=== PATIENT | female | born 1955 | race Caucasian/White ===

== ENCOUNTER 2017-06-01 19:32 | Emergency (ER) | payer MEDICARE, OTHER ==
[2016-07-17 05:48] VITALS: BMI 22.3
[~2017-06-01 19:32] MED LIST: ACETAMINOPHEN500 M1 PO; AMITIZA24 MCG PO; ATARAX 25 MG TA25 MG PO; ATIVAN1 MG PO; ATROVENT 0.02%2.5 ML UPD; BACLOFEN20 M1 PO; BENADRYL25 MG PO; CATAPRES TTS-20.2 MG TD; CELEBREX200 MG PO; CORDARONE200 MG PO; CYCLOBENZAPRINE10 MG PO; CYPROHEPTADINE H4 MG PO; EMBREL IM; GEODON20 MG PO; HALOPERIDOL1 MG PO; HYDROCORTISO28.35 G1 TOPICAL; IMITREX50 MG PO; K-DUR20 MEQ PO; LASIX40 MG PO; LEVAQUIN500 MG PO; MAG-OX 400 MG400 MG PO; METOPROLOL TART50 MG PO; NEURONTIN 300300 MG PO; NEXIUM40 MG PO; NORVASC10 MG PO; NUCYNTA75 MG PO; ONDANSETRON4 MG/2 M3 IV; PERCOCET 10/3251 TA1 PO; PHENOBARBITAL97.2 MG PO; PREMARIN0.625 MG PO; PROTONIX40 MG PO; SCOT-TUSSI10 MG/5 ML PO; STERAPRED DS 1210 MG PO; TESSALON PERLE100 MG PO; VISTARIL25 MG PO; XOPENEX 0.0.63 MG/3 UPD; ZANAFLEX4 MG PO; ZOFRAN4 MG PO; ZOMIG2.5 MG PO
== END 2017-06-01 21:17 | disposition home or self-care (01) ==
LOC: D.ER 19:32
DX: M54.16 Radiculopathy, lumbar region (principal); I50.9 Heart failure, unspecified

== ENCOUNTER 2017-06-07 19:01 | Emergency (ER) | payer MEDICARE, OTHER ==
[2016-07-17 05:48] VITALS: BMI 22.3
== END 2017-06-07 21:05 | disposition home or self-care (01) ==
LOC: D.ER 19:01
DX: M54.5 Low back pain (principal); I50.9 Heart failure, unspecified

== ENCOUNTER 2017-06-18 05:17 | Emergency (ER) | payer MEDICARE, OTHER ==
[2016-07-17 05:48] VITALS: BMI 22.3
== END 2017-06-18 05:50 | disposition home or self-care (01) ==
LOC: D.ER 05:17
DX: M79.605 Pain in left leg (principal); M79.604 Pain in right leg

== ENCOUNTER 2017-06-20 23:53 | Emergency (ER) | payer MEDICARE, OTHER ==
[2016-07-17 05:48] VITALS: BMI 22.3
== END 2017-06-21 00:40 | disposition home or self-care (01) ==
LOC: D.ER 23:53
DX: M79.662 Pain in left lower leg (principal); M79.661 Pain in right lower leg; G62.9 Polyneuropathy, unspecified; M54.16 Radiculopathy, lumbar region; I50.9 Heart failure, unspecified

== ENCOUNTER 2017-06-25 05:38 | Emergency (ER) | payer MEDICARE, OTHER ==
[2016-07-17 05:48] VITALS: BMI 22.3
== END 2017-06-25 06:20 | disposition home or self-care (01) ==
LOC: D.ER 05:38
DX: M54.5 Low back pain (principal); M51.36 Other intervertebral disc degeneration, lumbar region; M54.16 Radiculopathy, lumbar region

== ENCOUNTER 2017-06-27 19:43 | Emergency (ER) | payer MEDICARE, OTHER ==
[2016-07-17 05:48] VITALS: BMI 22.3
== END 2017-06-27 22:30 | disposition home or self-care (01) ==
LOC: D.ER 19:43
DX: M54.5 Low back pain (principal); M79.605 Pain in left leg

== ENCOUNTER 2017-06-30 22:44 | Emergency (ER) | payer MEDICARE, OTHER ==
[2016-07-17 05:48] VITALS: BMI 22.3
[2017-07-01] MEDS ORDERED: LYRICA50 MG PO (20:46)
[2017-07-01] MEDS ORDERED: CELEXA10 MG PO (20:47)
[2017-07-01] MEDS ORDERED: ROBAXIN500 MG PO (20:48)
[2017-07-01] MEDS ORDERED: SINGULAIR10 MG PO (20:51)
[2017-07-01] MEDS ORDERED: BACLOFEN10 MG PO (20:52)
[2017-07-01] MEDS ORDERED: NORVASC10 MG PO (20:53)
[2017-07-01] MEDS ORDERED: METOPROLOL TAR100 M1 PO (20:54)
[2017-07-01] MEDS ORDERED: VITAMIN D31000 UNIT PO (20:54)
[2017-07-01] MEDS ORDERED: PREMARIN0.625 MG PO (20:58)
== END 2017-07-01 00:25 | disposition home or self-care (01) ==
LOC: D.ER 22:44
DX: M54.16 Radiculopathy, lumbar region (principal)

== ENCOUNTER 2017-07-01 17:37 | Inpatient (IN) | payer MEDICARE, OTHER ==
[~2017-07-01] VITALS: Ht 157.5 cm; Wt 64.1 kg
[2017-07-01 19:07] LABS: BASOPHILS 0.3 % (0-2); EOSINOPHILS 4.7 % (0-7); HEMATOCRIT 43.9 % (36.0-48.0); HEMOGLOBIN 13.3 g/dL (12-16); LYMPHOCYTES 29.6 % (15-50); MCH 29.4 pg (26.0-34.0); MCHC 30.3 g/dL (31.0-37.0); MCV 97.1 fL (80.0-100.0); MEAN PLATELET VOLUME 10.7 fL (7.4-10.4); MONOCYTES 9.9 % (2-11); NEUTROPHILS 54.5 % (40-80); PLATELET COUNT 241 10x3/uL (130-400); RBC 4.52 10x6/uL (4.00-5.40); RDW 15.4 % (11.5-14.5); WBC 5.9 10x3/uL (4.8-10.8)
[2017-07-01 19:15] LABS: ALBUMIN 3.2 g/dL (3.4-5.0); ANION GAP 17.3 mmol/L (8-16); BILIRUBIN - TOTAL 0.24 mg/dL (0.2-1.3); CARBON DIOXIDE 24.4 mmol/L (21.0-32.0); CREATININE - SERUM 1.1 mg/dL (0.6-1.3); POTASSIUM - SERUM 4.7 mmol/L (3.5-5.1); PROTEIN - SERUM 7.2 g/dL (6.4-8.2)
[2017-07-01 20:00] VITALS: BP 136/73
[2017-07-01] MEDS ORDERED: LYRICA50 MG PO (20:46)
[2017-07-01] MEDS ORDERED: CELEXA10 MG PO (20:47)
[2017-07-01] MEDS ORDERED: ROBAXIN500 MG PO (20:48)
[2017-07-01] MEDS ORDERED: SINGULAIR10 MG PO (20:51)
[2017-07-01] MEDS ORDERED: BACLOFEN10 MG PO (20:52)
[2017-07-01] MEDS ORDERED: NORVASC10 MG PO (20:53)
[2017-07-01] MEDS ORDERED: METOPROLOL TAR100 M1 PO (20:54)
[2017-07-01] MEDS ORDERED: VITAMIN D31000 UNIT PO (20:54)
[2017-07-01] MEDS ORDERED: PREMARIN0.625 MG PO (20:58)
[2017-07-01 23:26] VITALS: BP 136/73; Ht 157.5 cm; Wt 64.1 kg
[2017-07-02] VITALS: BP 127/52
[2017-07-02 02:55] LABS: APPEARANCE CLOUDY (CLEAR); BACTERIA MANY /hpf (NONE SEEN); BILIRUBIN NEGATIVE (NEGATIVE); COLOR YELLOW (YELLOW); EPITHELIAL CELLS RARE /hpf (0-5); GLUCOSE NEGATIVE (NEGATIVE); KETONE SMALL mg/dL (NEGATIVE); LEUKOCYTE ESTERASE 1+ (NEGATIVE); MUCUS >1+ /lpf (NONE SEEN); NITRITE NEGATIVE (NEGATIVE); PROTEIN TRACE mg/dL (NEGATIVE); RED CELLS - URINE 0-5 /hpf (0-5); UROBILINOGEN NORMAL (NORMAL)
[2017-07-02 04:00] VITALS: BP 120/63
--- NOTE | 2017-07-02 05:29 | NUR ---
RECEIVED PT TO FLOOR VIA STRETCHER @ 1999. REVIEWED HOME MEDS AND SENT BOTTLES BACK HOME WITH SPOUSE. PT HAS SLEPT WELL MOST OF SHIFT. HAVE GIVEN PAIN MEDICINE TWICE. ASSISTED PT UP TO BEDSIDE COMMODE ONCE AND PT GOT UP ONCE BY HERSELF. WILL CONTINUE TO MONITOR.
[2017-07-02 06:57] LABS: BASOPHILS 0.3 % (0-2); EOSINOPHILS 3.7 % (0-7); HEMATOCRIT 45.3 % (36.0-48.0); HEMOGLOBIN 13.6 g/dL (12-16); IMMATURE GRANULOCYTES 0.8 % (0-5); LYMPHOCYTES 38.5 % (15-50); MCH 29.5 pg (26.0-34.0); MCV 98.3 fL (80.0-100.0); MEAN PLATELET VOLUME 10.8 fL (7.4-10.4); MONOCYTES 12.4 % (2-11); NEUTROPHILS 44.3 % (40-80); PLATELET COUNT 239 10x3/uL (130-400); RBC 4.61 10x6/uL (4.00-5.40); RDW 15.5 % (11.5-14.5); WBC 7.3 10x3/uL (4.8-10.8)
[2017-07-02 07:04] LABS: ANION GAP 15.2 mmol/L (8-16); CALCIUM 9.1 mg/dL (8.5-10.1); CARBON DIOXIDE 26.5 mmol/L (21.0-32.0); CREATININE - SERUM 1.2 mg/dL (0.6-1.3); POTASSIUM - SERUM 4.7 mmol/L (3.5-5.1)
--- NOTE | 2017-07-02 07:25 | NUR ---
REPORT RECEIVED FROM CAKE WRINGER NURSE. CALL LIGHT IN REACH.
--- NOTE | 2017-07-02 08:02 | NUR ---
ASSESSMENT COMPLETED. C/O PAIN OF 10 TO HIP. DILAUDID AND ZOFRAN IVP. SCDs TO BLE. BED ALARM ON. CALL LIGHT IN REACH. PASSWORD OBTAINED. WILL CONTINUE WITH PLAN OF CARE.
[2017-07-02 08:40] VITALS: BP 115/67
--- NOTE | 2017-07-02 10:12 | NUR ---
WOKE UP CRYING IN PAIN. DILAUDID 1 MG SIVP. CALL LIGHT IN REACH.
--- NOTE | 2017-07-02 11:23 | NUR ---
Patient Name: BRIAN OAKES Admission Status: ER Accout number: [id number] Admission Date: 07-01-2017 : 1955 Admission Diagnosis:PATHOLOGICAL FRACTURE, OTHER SITE, INIT ENCNTR FOR FRAC Attending: JOSE RAFAEL Current LOS: 1 Anticipated DC Date: Planned Disposition: Primary Insurance: MEDICARE A & B Discharge Planning Comments: CM met with patient to discuss discharge planning needs. Patient states that she lives independently with her Fidel. She has 3 steps to enter in her home. She uses a CPAP machine and has a walker at home. CM will continue to follow and assist. Rehab consult ordered and spoke with patient about that. Sravani from rehab to give her more information. CM will continue to follow and assist as needed. PCP: Dano alexandra Boris Leger () [phone] or [phone] Legal Summer Intern: Samanta Paulsno * Is the patient Alert and Oriented? Yes 0 * How many steps to enter\exit or inside your home? 3 0 * PCP [facility] 0 * [facility]acy [facility] 0 * Preadmission Environment Home with Family 0 * ADLs Independent 0 * Equipment CPAP Walker 0 * List name and contact numbers for known caregivers / representatives who currently or will assist patient after discharge: FIDEL OAKES () [phone] * Community resources currently utilized None 0 * Additional services required to return to the preadmission environment? Yes 0 * Can the patient safely return to the preadmission environment? Yes 0 * Has this patient been hospitalized within the prior 30 days at any hospital? No 0 Grand Total: 0
--- NOTE | 2017-07-02 12:35 | NUR ---
NO NEEDS VOICED AT THIS TIME. CALL LIGHT IN REACH.
[2017-07-02 12:48] VITALS: BP 137/67
--- NOTE | 2017-07-02 12:57 | NUR ---
LYING IN BED CRYING WANTING PAIN MEDS.NURSE NOTIFIED OF SAME. DENIES NEEDS OTHERWISE.
--- NOTE | 2017-07-02 12:58 | NUR ---
REQUESTING MORE PAIN MEDS. DILAUDID 1 MG SIVP. PHYSICAL THERAPY AT THIS TIME.
--- NOTE | 2017-07-02 14:00 | NUR ---
WANTS PAIN MEDS BUT TOO SOON AT THIS TIME. WILL BRING WHEN IT IS READY.
--- NOTE | 2017-07-02 15:11 | NUR ---
SPIKE LAIRD. MARINE ENGINEERING TEACHER IN ROOM TO SPEAK WITH PATIENT AND .
--- NOTE | 2017-07-02 16:08 | NUR ---
Rehab Note- Acute Rehab Prescreen Order received. The patient is refusing therapy at this time. Will follow at this time. Thank you for this referral! Sravani Brown RN Clinical Liaison, [facility] Rehab
[2017-07-02 16:13] VITALS: BP 122/57
--- NOTE | 2017-07-02 16:27 | NUR ---
SPOKE WITH PATIENT AND SPOUSE AND PATIENT IS REFUSING HH, IN PATIENT REHAB AND OUT PATIENT REHAB. STATED THAT SHE HAS BEEN LIKE THIS FOR THE PAST 20 YEARS AND SHE DOES NOT WANT ANY HELP, SHE JUST WANTS PAIN MEDICINE. HE STATED THAT IN THE PAST THAT SHE HAS TORN UP THE HOUSE TRYING TO FIND THE PAIN MEDICINE. APRIL JEREZ APN.
--- NOTE | 2017-07-02 17:00 | NUR ---
SEE CM NOTE ABOUT REHAB AND SENIOR LIVING
--- NOTE | 2017-07-02 18:16 | NUR ---
CRYING IN PAIN. STATES SHE CANNOT WAIT 6 HOURS IN BETWEEN PAIN MEDS. NEW ORDERS RECEIVED. NO OTHER CHANGES IN INITIAL ASSESSMENT. DINH ALARM ON. SCDs TO BLE. CALL LIGHT IN REACH. WILL CONTINUE WITH PLAN OF CARE.
[2017-07-02 20:00] VITALS: BP 115/54
--- NOTE | 2017-07-02 22:46 | NUR ---
REC'D LYING IN BED. ALERT AND ORIENTED X4. IS CRYING THAT SHE IS IN PAIN. INFORMED HER THAT PAIN MEDS WERE DUE AT 2110. VERBALIZED UNDERSTANDING. INSTRUCTED TO CALL IF NEEDED ANYTHING. VERBALIZED UNDERSTANDING. ALSO IV HAD INFILTRATED DC'D CATHETER STILL INTACT. WILL TRY TO RESTART. DENIED FURTHER NEEDS AT THIS TIME. BED LOW, LOCKED, CALL LIGHT IN REACH, ALARM ON.
--- NOTE | 2017-07-03 02:49 | NUR ---
RESTING,WITHOUT NEEEDS.CALL LIGHT IN REACH
[2017-07-03 03:34] VITALS: BP 123/62
--- NOTE | 2017-07-03 07:00 | NUR ---
PT RESTING IN BED WITH EYES CLOSED CURRENTLY RECEIVING BREATHING TX. NO SIGNS OF DISTRESS. RESP EVEN AND UNLABORED. BED LOW, CALL LIGHT IN REACH, CPOC.
[2017-07-03 07:17] LABS: BASOPHILS 0.2 % (0-2); HEMATOCRIT 35.3 % (36.0-48.0); HEMOGLOBIN 10.7 g/dL (12-16); IMMATURE GRANULOCYTES 0.2 % (0-5); LYMPHOCYTES 36.3 % (15-50); MCH 29.3 pg (26.0-34.0); MCHC 30.3 g/dL (31.0-37.0); MCV 96.7 fL (80.0-100.0); MEAN PLATELET VOLUME 10.4 fL (7.4-10.4); MONOCYTES 12.7 % (2-11); NEUTROPHILS 46.6 % (40-80); PLATELET COUNT 169 10x3/uL (130-400); RBC 3.65 10x6/uL (4.00-5.40); RDW 15.1 % (11.5-14.5); WBC 5.7 10x3/uL (4.8-10.8)
[2017-07-03 07:32] LABS: ALBUMIN 2.5 g/dL (3.4-5.0); ANION GAP 8.2 mmol/L (8-16); BILIRUBIN - TOTAL 0.22 mg/dL (0.2-1.3); CALCIUM 8.3 mg/dL (8.5-10.1); CARBON DIOXIDE 30.5 mmol/L (21.0-32.0); PROTEIN - SERUM 5.9 g/dL (6.4-8.2)
[2017-07-03 07:33] LABS: POTASSIUM - SERUM 3.7 mmol/L (3.5-5.1)
[2017-07-03 08:11] VITALS: BP 98/50
--- NOTE | 2017-07-03 09:38 | NUR ---
MORNING MEDS PASSED AT THIS TIME. TOLERATED WELL. NO COMPLAINTS. VIOLETTA CHAPA, AT BEDSIDE ASSISTING WITH SHOWER AND LINEN CHANGE. PT ABLE TO AMBULATE AROUND ROOM WITH CANE. BED LOW, CALL LIGHT IN REACH, DENIES NEEDS. CPOC.
--- NOTE | 2017-07-03 09:40 | NUR ---
MORNING MEDS PASSED AT THIS TIME. TOLERATED WELL. FRESH WATER PROVIDED. BED LOW, CALL LIGHT IN REACH, DENIES NEEDS. CPOC.
--- NOTE | 2017-07-03 11:00 | NUR ---
PRN PAIN MEDICATION ADMINISTERED AT THIS TIME. RATING CURRENT PAIN IN HIPS 8.5/10. WILL REASSESS. BED LOW, CALL LIGHT IN REACH, DENIES NEEDS. CPOC.
--- NOTE | 2017-07-03 11:48 | NUR ---
RESPIRATIONS EVEN AND NON LABORED. PT DENIES NEEDS AT THIS TIME. CALL LIGHT IN REACH, WILL CONTINUE WITH PLAN OF CARE.
[2017-07-03 11:54] VITALS: BP 117/62
--- NOTE | 2017-07-03 14:00 | NUR ---
PRN PAIN MEDICATION ADMINISTERED AT THIS TIME. RATING CURRENT PAIN IN HIPS 8.5/10. WILL REASSESS. BED LOW, CALL LIGHT IN REACH, DENIES NEEDS. CPOC.
--- NOTE | 2017-07-03 15:30 | NUR ---
PRN PAIN MEDICATION ADMINISTERED AT THIS TIME. RATING CURRENT PAIN IN HIPS 8.5/10. PT UP AMBULATING USING WALKER. REPOSITIONED UP IN BED. BED LOW, CALL LIGHT IN REACH, DENIES NEEDS. CPOC.
[2017-07-03 16:32] VITALS: BP 136/67
[2017-07-03 20:00] VITALS: BP 95/51
--- NOTE | 2017-07-03 22:53 | NUR ---
REC'D LYING IN BED. IS CRYING OUT IN PAIN. REPORTED PAIN 10/10. WILL ADMIN MEDS PRESCRIBED. WILL CONT TO MONITOR. INSTRUCTED TO CALL IF NEEDED ANYTHING. VERBALIZED UNDERSTANDING. BED LOW, LOCKED, CALL LIGHT IN REACH.
[2017-07-04] VITALS: BP 112/58
[2017-07-04 05:17] LABS: BASOPHILS 0.5 % (0-2); EOSINOPHILS 5.8 % (0-7); HEMATOCRIT 36.6 % (36.0-48.0); IMMATURE GRANULOCYTES 0.2 % (0-5); MCH 29.6 pg (26.0-34.0); MCHC 30.1 g/dL (31.0-37.0); MCV 98.7 fL (80.0-100.0); MEAN PLATELET VOLUME 10.7 fL (7.4-10.4); NEUTROPHILS 45.5 % (40-80); PLATELET COUNT 179 10x3/uL (130-400); RBC 3.71 10x6/uL (4.00-5.40); RDW 15.3 % (11.5-14.5); WBC 5.6 10x3/uL (4.8-10.8)
[2017-07-04 05:43] LABS: % SATURATION 17 % (15-55); IRON 37 ug/dl (35-150); TOTAL IRON BIND CAPACITY 207 ug/dl (260-445); UNSAT IRON BIND CAPACITY 170 ug/dl (150-375)
[2017-07-04 05:55] LABS: ALBUMIN 2.5 g/dL (3.4-5.0); ANION GAP 9.5 mmol/L (8-16); BILIRUBIN - TOTAL 0.2 mg/dL (0.2-1.3); CALCIUM 8.5 mg/dL (8.5-10.1); CARBON DIOXIDE 29.7 mmol/L (21.0-32.0); CREATININE - SERUM 1.2 mg/dL (0.6-1.3); POTASSIUM - SERUM 4.2 mmol/L (3.5-5.1)
--- NOTE | 2017-07-04 07:05 | NUR ---
PT REC'D FROM JEMIMA HERNANDEZ. RESTING IN BED WITH EYES CLOSED. NO SIGNS OF DISTRESS. RESP EVEN AND UNLABORED. REGULAR HEART RATE AND RHYTHM. LUNG SOUNDS CLEAR AND EQUAL BILAT. BED LOW, CALL LIGHT IN REACH, CPOC.
[2017-07-04 08:15] VITALS: BP 99/60
--- NOTE | 2017-07-04 09:25 | NUR ---
MORNING MEDS PASSED AT THIS TIME. FRESH WATER PROVIDED. BED LOW, CALL LIGHT IN REACH, DENIES NEEDS. CPOC.
--- NOTE | 2017-07-04 10:50 | NUR ---
PATIENT IN LOW BARNES POSITION RESTING QUIETLY WITH EYES CLOSED. RESPIRATIONS EVEN AND UNLABORED. SIDE RAILS UP X2. BED IN LOW POSITION. CALL LIGHT IN REACH.
[2017-07-04 11:17] VITALS: BP 111/63
--- NOTE | 2017-07-04 11:45 | NUR ---
REPOSITIONED UP IN BED AT THIS TIME. BED LOW, CALL LIGHT IN REACH, DENIES NEEDS. CPOC.
--- NOTE | 2017-07-04 14:49 | NUR ---
PT RESTING IN BED WATCHING TV. ASKING WHEN PAIN MEDICATION IS DUE. EXPLAINED TO HER THAT SHE CAN HAVE IT EVERY 6 HOURS. STATES SHE UNDERSTANDS. BED LOW, CALL LIGHT IN REACH, DENIES NEEDS. CPOC.
[2017-07-04 15:14] VITALS: BP 98/54
[2017-07-04 19:00] VITALS: BP 97/58
--- NOTE | 2017-07-04 19:46 | NUR ---
PT IS LYING IN BED STATED PAIN IS AT 9 WANTED TO KNOW TIME OF NEXT ADMIN FOR PAIN MED. PT NEXT DOSE IS 2025. BED IN LOW POSTION CALL LIGHT IN REACH VERBALIZED NO OTHER NEEDS AT THIS TIME
[2017-07-05 00:37] VITALS: BP 104/50
--- NOTE | 2017-07-05 02:15 | NUR ---
PT RESTING IN BED WITH EYES CLOSED AND NO VISIBLE SIGNS OF DISTRESS. BED IN LOWEST POSITION AND CALL LIGHT WITHIN REACH.
[2017-07-05 04:00] VITALS: BP 99/43
[2017-07-05 05:41] LABS: BASOPHILS 0.5 % (0-2); EOSINOPHILS 6.9 % (0-7); HEMOGLOBIN 10.9 g/dL (12-16); IMMATURE GRANULOCYTES 0.2 % (0-5); LYMPHOCYTES 40.1 % (15-50); MCHC 30.3 g/dL (31.0-37.0); MCV 99.2 fL (80.0-100.0); MEAN PLATELET VOLUME 11.2 fL (7.4-10.4); MONOCYTES 11.1 % (2-11); NEUTROPHILS 41.2 % (40-80); PLATELET COUNT 214 10x3/uL (130-400); RBC 3.63 10x6/uL (4.00-5.40); RDW 15.7 % (11.5-14.5); WBC 6.1 10x3/uL (4.8-10.8)
[2017-07-05 05:58] LABS: ALBUMIN 2.5 g/dL (3.4-5.0); ANION GAP 8.2 mmol/L (8-16); BILIRUBIN - TOTAL 0.3 mg/dL (0.2-1.3); CALCIUM 8.6 mg/dL (8.5-10.1); CARBON DIOXIDE 29.4 mmol/L (21.0-32.0); POTASSIUM - SERUM 4.6 mmol/L (3.5-5.1); PROTEIN - SERUM 6.2 g/dL (6.4-8.2)
--- NOTE | 2017-07-05 07:07 | NUR ---
REPORT RECEIVED FROM CHEMICAL PLANT MANAGER NURSE. CALL LIGHT IN REACH.
[2017-07-05 08:15] VITALS: BP 112/63
--- NOTE | 2017-07-05 08:20 | NUR ---
ASSESSMENT COMPLETED. NORCO PO WITH AM MEDS ADMINISTERED. REFUSES SCDs. BED ALARM ON. CALL LIGHT IN REACH. WILL CONTINUE WITH PLAN OF CARE.
[2017-07-05] MEDS ORDERED: HYDROCODONE-APA1 TAB PO (09:42)
--- NOTE | 2017-07-05 10:08 | NUR ---
STILL C/O PAIN ON 9. DILAUDID 0.5 MG SIVP PER ORDER. INFORMED PATIENT OF DC ORDERS. VERBALIZED UNDERSTANDING.
--- NOTE | 2017-07-05 11:10 | NUR ---
LYING IN BED SUPINE AT THIS TIME WITH RESPIRATIONS EVEN AND NON LABORED. PT TO D/C HOME AT TODAY. WILL CONTINUE WITH PLAN OF CARE.
--- NOTE | 2017-07-05 11:16 | NUR ---
PATIENT DISCHARGING TODAY, HOME HEALTH ORDERED, I SPOKE WITH LICHA QUINONES AND SHE STATED THAT SHE WOULD LIKE TO USE HH. [place] SIGNED. IMM SERVED. REFERRAL SENT. TO DRIVE PATIENT HOME.
--- NOTE | 2017-07-05 12:09 | NUR ---
DC INSTRUCTIONS EXPLAINED TO PATIENT AND . RX FOR NORCO GIVEN TO . DC'D TO VEHICLE VIA WC WITH .
[2017-07-06 07:24] LABS: VITAMIN D 25 HYDROXY 36.2 ng/mL (30.0-100.0)
[2017-07-06 08:17] LABS: FOLATE (FOLIC ACID) - SERUM 5.3 ng/mL (>3.0)
== END 2017-07-05 12:09 | disposition home health service (06) | DRG 543 ==
LOC: D.ER 17:37 → D.MS 19:00
PROVIDERS: Family Medicine; ADMIT Family Medicine
DX: M84.454A Pathological fracture, pelvis, initial encounter for fracture (principal); I50.32 Chronic diastolic (congestive) heart failure; M70.62 Trochanteric bursitis, left hip; M84.48XA Pathological fracture, other site, initial encounter for fracture; I11.0 Hypertensive heart disease with heart failure; K21.9 Gastro-esophageal reflux disease without esophagitis; I48.91 Unspecified atrial fibrillation; D50.9 Iron deficiency anemia, unspecified; F19.90 Other psychoactive substance use, unspecified, uncomplicated

== ENCOUNTER 2017-07-09 01:44 | Emergency (ER) | payer MEDICARE, OTHER ==
[2017-07-01 23:26] VITALS: BMI 25.8
[~2017-07-09 01:44] MED LIST changes: +BACLOFEN10 MG PO; +CELEXA10 MG PO; +HYDROCODONE-APA1 TAB PO; +LYRICA50 MG PO; +METOPROLOL TAR100 M1 PO; +ROBAXIN500 MG PO; +SINGULAIR10 MG PO; +VITAMIN D31000 UNIT PO
== END 2017-07-09 02:40 | disposition home or self-care (01) ==
LOC: D.ER 01:44
DX: S32.592A Other specified fracture of left pubis, initial encounter for closed fracture (principal); X58.XXXA Exposure to other specified factors, initial encounter; M25.552 Pain in left hip

== ENCOUNTER 2017-07-09 15:03 | Emergency (ER) | payer MEDICARE, OTHER ==
[2017-07-01 23:26] VITALS: BMI 25.8
[2017-07-09 16:37] LABS: BASOPHILS 0.1 % (0-2); EOSINOPHILS 4.1 % (0-7); HEMOGLOBIN 11.6 g/dL (12-16); IMMATURE GRANULOCYTES 0.1 % (0-5); MCH 29.8 pg (26.0-34.0); MCHC 31.4 g/dL (31.0-37.0); MCV 95.1 fL (80.0-100.0); MEAN PLATELET VOLUME 11.1 fL (7.4-10.4); MONOCYTES 8.7 % (2-11); PLATELET COUNT 202 10x3/uL (130-400); RBC 3.89 10x6/uL (4.00-5.40); WBC 7.8 10x3/uL (4.8-10.8)
[2017-07-09 17:16] LABS: ALBUMIN 2.9 g/dL (3.4-5.0); ANION GAP 12.7 mmol/L (8-16); BILIRUBIN - TOTAL 0.26 mg/dL (0.2-1.3); CALCIUM 8.6 mg/dL (8.5-10.1); CARBON DIOXIDE 27.1 mmol/L (21.0-32.0); CREATININE - SERUM 1.2 mg/dL (0.6-1.3); POTASSIUM - SERUM 3.8 mmol/L (3.5-5.1); PROTEIN - SERUM 6.9 g/dL (6.4-8.2)
== END 2017-07-09 20:16 | disposition home or self-care (01) ==
LOC: D.ER 15:03
PROVIDERS: Emergency Medicine
DX: R10.9 Unspecified abdominal pain (principal)

== ENCOUNTER 2017-07-14 03:15 | Emergency (ER) | payer MEDICARE, OTHER ==
[2017-07-01 23:26] VITALS: BMI 25.8
== END 2017-07-14 04:37 | disposition home or self-care (01) ==
LOC: D.ER 03:15
DX: R10.2 Pelvic and perineal pain (principal); M54.5 Low back pain; I10 Essential (primary) hypertension

== ENCOUNTER 2017-07-14 23:10 | Emergency (ER) | payer MEDICARE, OTHER ==
[2017-07-01 23:26] VITALS: BMI 25.8
== END 2017-07-15 00:49 | disposition home or self-care (01) ==
LOC: D.ER 23:10
DX: R10.2 Pelvic and perineal pain (principal); I10 Essential (primary) hypertension

== ENCOUNTER 2017-07-19 21:56 | Emergency (ER) | payer MEDICARE, OTHER ==
[2017-07-01 23:26] VITALS: BMI 25.8
== END 2017-07-19 23:12 | disposition home or self-care (01) ==
LOC: D.ER 21:56
DX: S72.002G Fracture of unspecified part of neck of left femur, subsequent encounter for closed fracture with delayed healing (principal); X58.XXXD Exposure to other specified factors, subsequent encounter; I10 Essential (primary) hypertension